=== PATIENT | female | born 1995 | race Caucasian/White ===

== ENCOUNTER 2017-11-13 18:21 | Emergency (ER) | payer SELFPAY ==
--- NOTE | 2017-11-13 18:46 | Emergency Department Record ---
History of Present Illness - General Chief complaint: complication Stated complaint: TEST Time Seen by Provider: 11/13/17 18:33 Source: Patient Mode of Arrival: Ambulatory Limitations: No limitations - History of Present Illness Initial comments: The patient is here due to requesting a test. She states she has not had a menses in 3 months and has had a 50 lb weight gain. She did have a neg home test recently. There is no hx of AP, nausea, vomiting, or diarrhea. MD Complaint: Other Onset/Timin -: Month(s) Associated symptoms: Denies other symptoms LMP (females 10-50): 3 months ago - Related Data : 1 Para: 0 Ab: 0 Home Medications Medication Instructions Recorded Confirmed Last Taken No Home Med [NO HOME MEDS] 11/13/17 11/13/17 Unknown Allergies Allergy/AdvReac Type Severity Reaction Status Date / Time No Known Drug Allergies Allergy Verified 11/13/17 18:33 Past Medical History - SOCIAL HISTORY Smoking Status: Current every day smoker Alcohol Use: None Drug Use: None - [employer] History : 1 Para: 0 A: 0 - RESPIRATORY Hx Respiratory Disorders: Yes Hx Asthma: Yes - CARDIOVASCULAR Hx Cardio Disorders: No - NEURO Hx Neuro Disorders: No - GI Hx GI Disorders: No - Hx Genitourinary Disorders: No - ENDOCRINE Hx Endocrine Disorders: No - MUSCULOSKELETAL Hx Musculoskeletal Disorders: No - PSYCH Hx Psych Problems: No - HEMATOLOGY/ONCOLOGY Hx Hematology/Oncology Disorders: No Family Medical History Any Significant Family History?: No Physical Exam - General General Appearance: Alert, Oriented x3, Cooperative, No acute distress - Head Head exam: Atraumatic, Normocephalic, Normal inspection - Eye Eye exam: Normal appearance, PERRL - ENT Throat exam: Normal inspection. negative: Tonsillar erythema, Tonsillar exudate - Neck Neck exam: Normal inspection, Full ROM. negative: Tenderness - Respiratory Respiratory exam: Normal lung sounds bilaterally. negative: Respiratory distress - Cardiovascular Cardiovascular Exam: Regular rate, Normal rhythm, Normal heart sounds - GI/Abdominal GI/Abdominal exam: Soft, Normal bowel sounds. negative: Tenderness - Extremities Extremities exam: Normal inspection, Full ROM, Normal capillary refill. negative: Tenderness - Neurological Neurological exam: Alert. negative: Motor sensory deficit Course Vital Signs 11/13/17 18:29 Temperature 98.9 F Pulse Rate 115 H Respiratory 20 Rate Blood Pressure 128/87 Pulse Ox 98 - Reevaluation(s) Reevaluation #1: I did discuss the neg preg test with the patient. I then did recommend lab work to evaluate her complaints. The patient is refusing the plan. She also asked me if it could be the medicine that she takes but she is not sure of the name of the meds (she is on 4-5). I then asked her who her PCP was and she stated she has one in [place] and is heading to [place] tomorrow for 3 weeks and then back to [facility]. She is encouraged to see her PCP when she gets home for this issue. 11/13/17 19:00 Disposition Disposition: Discharge Clinical Impression: Weight gain Disposition: Home, Self-Care Condition: (2) Stable Instructions: Weight Management (ED) Additional Instructions: Please see your family doctor for recheck this week and have a full lab evaluation for your weight gain. Forms: Patient Portal Access Time of Disposition: 18:59 Quality - Quality Measures Quality Measures: N/A - Blood Pressure Screening View Details: Yes Does Patient Have Any of the Following: No Blood Pressure Classification: Pre-Hypertensive BP Reading Systolic Measurement: 128 Diastolic Measurement: 87 Screening for High Blood Pressure: < Pre-Hypertensive BP, F/U Documented > [ [id number]] Pre-Hypertensive Follow-up Interventions: Referral to alternative/primary care provider.
== END 2017-11-13 19:06 | disposition home or self-care (01) ==
LOC: ER 18:21
DX: R63.5 Abnormal weight gain (principal); N91.2 Amenorrhea, unspecified
CPT/HCPCS: 81025; 99282